=== PATIENT | male | born 1945 | race Caucasian/White ===

== ENCOUNTER 2020-10-19 12:56 | Inpatient (IN) | payer MEDICARE, MEDICAID ==
[~2020-10-19] VITALS: Ht 177.8 cm; Wt 67.7 kg
[2020-10-19 13:30] LABS: HEMATOCRIT. 28.6 % (42.0-52.0); HEMOGLOBIN. 9.7 g/dL (14.0-18.0); MEAN CORPUSCULAR VOLUME 88.1 fL (80.0-94.0); MEAN PLATELET VOLUME 9.7 fl (7.4-10.4); PLATELET 102 x1000/uL (130-400); RED BLOOD CELL COUNT 3.25 mill/uL (4.7-6.1); RED CELL DISTRIBUTION WIDTH 13.7 % (11.6-14.6)
[2020-10-19] MEDS ORDERED: FUROSEMIDE 20MG/2ML VIAL IVP ONE (13:30)
[2020-10-19] MEDS ORDERED: DILTIAZEM HCL 5MG/ML 5ML VIAL IV ONE (13:30)
[2020-10-19 13:38] LABS: CHLORIDE 110 mEq/L (98-107)
[2020-10-19 14:00] LABS: PLATELET ESTIMATE DECREASED
[2020-10-19 22:08] VITALS: BP 110/77
[2020-10-19] MEDS ORDERED: ATEN-42 PO (23:15)
[2020-10-19] MEDS ORDERED: PROM5SYR PO (23:15)
[2020-10-19] MEDS ORDERED: OMEP40CA12 PO (23:15)
[2020-10-19] MEDS ORDERED: RAMI10CA68 PO (23:15)
[2020-10-19] MEDS ORDERED: *PATIENT'S OWN MEDICATION STORAGE XX SCH (23:30)
[2020-10-20] VITALS (7 sets, daily range): BP systolic 110–140; BP diastolic 70–93
[2020-10-20] MEDS ORDERED: DEXTROSE 50% WATER 50ML SYRINGE IV PRN (00:30)
[2020-10-20] MEDS ORDERED: CEFTRIAXONE 1 G PREMIX 50 ML IV SCH (01:00)
[2020-10-20] MEDS: POTASSIUM CHLORIDE 20MEQ TABLET SR PO SCH ×2 (01:29→09:06)
[2020-10-20] MEDS: METOPROLOL TARTRATE 50MG TABLET PO SCH ×3 (01:29→21:18)
[2020-10-20] MEDS: HYDROCODONE/ACETAMINOPHEN 5/325MG TABLET PO PRN (01:29)
[2020-10-20 01:40] LABS: CREATINE KINASE 53 IU/L (39-308)
[2020-10-20 01:41] LABS: CREATINE KINASE MB FRACTION 2.3 ng/mL (0.5-3.6)
[2020-10-20] MEDS ORDERED: VANCOMYCIN 1 G PREMIX 200 ML IV SCH (02:30)
[2020-10-20] MEDS ORDERED: CEFTRIAXONE 1,000 MG in DEXTROSE 5% WATER 50 ML IV SCH (02:47)
[2020-10-20] MEDS: BLOOD SUGAR DIAGNOSTIC STRIP TEST SCH ×4 (07:00→21:17)
[2020-10-20] MEDS: INSULIN LISPRO 100 UNITS/ML SUBCUT SCH ×4 (07:01→21:00)
[2020-10-20 07:30] LABS: CREATINE KINASE 51 IU/L (39-308)
[2020-10-20] MEDS: PANTOPRAZOLE SODIUM 40 MG/VIAL IV SCH (09:05)
[2020-10-20] MEDS: FUROSEMIDE 40MG/4ML VIAL IVP SCH (09:05)
[2020-10-20] MEDS: VANCOMYCIN 1 G PREMIX 200 ML IV SCH ×2 (12:19→21:18)
[2020-10-20] MEDS ORDERED: IPRATROPIUM/ALBUTEROL 0.5-3(2.5)MG/3ML NEB HHN PRN (17:00)
[2020-10-20] MEDS ORDERED: ONDANSETRON HCL 4MG/2ML INJ IV PRN (17:00)
[2020-10-20] MEDS ORDERED: BISACODYL 10MG SUPP PR PRN (17:00)
[2020-10-20] MEDS ORDERED: ACETAMINOPHEN 650MG SUPP PR PRN (17:00)
[2020-10-20] MEDS: DILTIAZEM HCL 30MG TABLET PO SCH (18:03)
[2020-10-20] MEDS: ENOXAPARIN 80MG/0.8ML SYR SUBCUT SCH (18:03)
[2020-10-20 19:47] LABS: BASOPHILS % 0.4 % (0.0-2.0); EOSINOPHILS % 4.4 % (0.0-5.0); HEMATOCRIT. 31.1 % (42.0-52.0); HEMOGLOBIN. 10.5 g/dL (14.0-18.0); LYMPHOCYTES % 7.7 % (20.0-50.0); MEAN CORPUSCULAR HEMOGLOBIN 30.6 pg (28.0-32.0); MEAN CORPUSCULAR VOLUME 90.4 fL (80.0-94.0); MEAN PLATELET VOLUME 10.6 fl (7.4-10.4); MONOCYTES % 5.9 % (2.0-8.0); NEUTROPHILS % 81.6 % (40.0-76.0); PLATELET 132 x1000/uL (130-400); RED BLOOD CELL COUNT 3.45 mill/uL (4.7-6.1); RED CELL DISTRIBUTION WIDTH 13.5 % (11.6-14.6)
[2020-10-20 19:55] LABS: INR 1.2; PROTHROMBIN TIME 12.9 sec (9.6-11.0)
[2020-10-20 20:07] LABS: CHLORIDE 99 mEq/L (98-107)
[2020-10-20 20:12] LABS: LDL CHOLESTEROL 73 mg/dL (5-100)
[2020-10-20 20:13] LABS: HDL CHOLESTEROL 34 mg/dL (40-59)
[2020-10-20 20:17] LABS: CREATINE KINASE 58 IU/L (39-308)
[2020-10-20 20:21] LABS: CREATINE KINASE MB FRACTION 2.2 ng/mL (0.5-3.6)
[2020-10-20] MEDS: CEFTRIAXONE 1,000 MG in DEXTROSE 5% WATER 50 ML IV SCH (21:18)
[2020-10-21] VITALS: BP 124/56
[2020-10-21] MEDS: HYDROCODONE/ACETAMINOPHEN 5/325MG TABLET PO PRN ×3 (00:51→14:55)
[2020-10-21 04:00] VITALS: BP 120/71
[2020-10-21] MEDS: ENOXAPARIN 80MG/0.8ML SYR SUBCUT SCH ×2 (05:46→18:22)
[2020-10-21] MEDS: DILTIAZEM HCL 30MG TABLET PO SCH ×4 (05:46→23:19)
[2020-10-21] MEDS: BLOOD SUGAR DIAGNOSTIC STRIP TEST SCH ×4 (06:45→20:33)
[2020-10-21 07:05] LABS: INR 1.2; PROTHROMBIN TIME 12.5 sec (9.6-11.0)
[2020-10-21 07:06] LABS: CHLORIDE 98 mEq/L (98-107)
[2020-10-21 07:08] LABS: BASOPHILS % 0.5 % (0.0-2.0); EOSINOPHILS % 6.5 % (0.0-5.0); HEMATOCRIT. 29.5 % (42.0-52.0); LYMPHOCYTES % 8.9 % (20.0-50.0); MEAN CORPUSCULAR HEMOGLOBIN 30.2 pg (28.0-32.0); MEAN CORPUSCULAR VOLUME 88.9 fL (80.0-94.0); MEAN PLATELET VOLUME 10.5 fl (7.4-10.4); MONOCYTES % 7.2 % (2.0-8.0); NEUTROPHILS % 76.9 % (40.0-76.0); PLATELET 106 x1000/uL (130-400); RED BLOOD CELL COUNT 3.32 mill/uL (4.7-6.1); RED CELL DISTRIBUTION WIDTH 13.6 % (11.6-14.6)
[2020-10-21] MEDS: INSULIN LISPRO 100 UNITS/ML SUBCUT SCH ×4 (07:15→21:00)
[2020-10-21 08:00] VITALS: BP 114/74
[2020-10-21] MEDS: FUROSEMIDE 40MG/4ML VIAL IVP SCH (08:46)
[2020-10-21] MEDS: PANTOPRAZOLE SODIUM 40 MG/VIAL IV SCH (08:46)
[2020-10-21] MEDS: VANCOMYCIN 1 G PREMIX 200 ML IV SCH (08:46)
[2020-10-21] MEDS: METOPROLOL TARTRATE 50MG TABLET PO SCH ×2 (08:47→20:33)
[2020-10-21] MEDS: POTASSIUM CHLORIDE 20MEQ TABLET SR PO SCH (08:47)
[2020-10-21 12:00] VITALS: BP 117/78
[2020-10-21 16:00] VITALS: BP 121/76
[2020-10-21] MEDS ORDERED: IOHEXOL-350 100 ML BOTTLE ONE (16:53)
[2020-10-21 20:00] VITALS: BP 115/76
[2020-10-21] MEDS: CEFTRIAXONE 1,000 MG in DEXTROSE 5% WATER 50 ML IV SCH (20:33)
[2020-10-21] MEDS: VANCOMYCIN 750 MG PREMIX 150 ML IV SCH (22:39)
[2020-10-21] MEDS: ACETAMINOPHEN 325MG TABLET PO PRN (23:20)
[2020-10-22] VITALS (7 sets, daily range): BP systolic 105–118; BP diastolic 66–79
[2020-10-22] MEDS: HYDROCODONE/ACETAMINOPHEN 5/325MG TABLET PO PRN ×3 (01:52→16:46)
[2020-10-22] MEDS: DILTIAZEM HCL 30MG TABLET PO SCH ×4 (05:08→23:44)
[2020-10-22] MEDS: ENOXAPARIN 80MG/0.8ML SYR SUBCUT SCH ×2 (05:35→18:17)
[2020-10-22] MEDS: BLOOD SUGAR DIAGNOSTIC STRIP TEST SCH ×4 (06:36→21:36)
[2020-10-22] MEDS: INSULIN LISPRO 100 UNITS/ML SUBCUT SCH ×4 (06:37→21:36)
[2020-10-22 08:04] LABS: BASOPHILS % 0.5 % (0.0-2.0); EOSINOPHILS % 5.8 % (0.0-5.0); HEMATOCRIT. 29.4 % (42.0-52.0); HEMOGLOBIN. 9.9 g/dL (14.0-18.0); MEAN CORPUSCULAR HEMOGLOBIN 29.7 pg (28.0-32.0); MEAN CORPUSCULAR VOLUME 88.1 fL (80.0-94.0); MEAN PLATELET VOLUME 10.7 fl (7.4-10.4); MONOCYTES % 6.8 % (2.0-8.0); NEUTROPHILS % 78.9 % (40.0-76.0); PLATELET 121 x1000/uL (130-400); RED BLOOD CELL COUNT 3.34 mill/uL (4.7-6.1); RED CELL DISTRIBUTION WIDTH 13.9 % (11.6-14.6)
[2020-10-22 08:06] LABS: CHLORIDE 96 mEq/L (98-107)
[2020-10-22] MEDS: VANCOMYCIN 750 MG PREMIX 150 ML IV SCH ×2 (09:09→23:32)
[2020-10-22] MEDS: FUROSEMIDE 40MG/4ML VIAL IVP SCH (09:09)
[2020-10-22] MEDS: POTASSIUM CHLORIDE 20MEQ TABLET SR PO SCH (09:09)
[2020-10-22] MEDS: PANTOPRAZOLE SODIUM 40 MG/VIAL IV SCH (09:09)
[2020-10-22] MEDS: METOPROLOL TARTRATE 50MG TABLET PO SCH ×2 (09:10→21:35)
[2020-10-22] MEDS: CEFTRIAXONE 1,000 MG in DEXTROSE 5% WATER 50 ML IV SCH (21:34)
[2020-10-23] MEDS: HYDROCODONE/ACETAMINOPHEN 5/325MG TABLET PO PRN ×4 (01:14→13:03)
[2020-10-23 04:00] VITALS: BP 120/75
[2020-10-23] MEDS: BLOOD SUGAR DIAGNOSTIC STRIP TEST SCH ×4 (06:01→21:05)
[2020-10-23] MEDS: DILTIAZEM HCL 30MG TABLET PO SCH ×3 (06:03→18:00)
[2020-10-23] MEDS: ENOXAPARIN 80MG/0.8ML SYR SUBCUT SCH ×2 (06:03→18:01)
[2020-10-23] MEDS: INSULIN LISPRO 100 UNITS/ML SUBCUT SCH ×4 (06:33→21:00)
[2020-10-23 06:46] LABS: CHLORIDE 94 mEq/L (98-107)
[2020-10-23 08:00] VITALS: BP 98/62
[2020-10-23] MEDS: METOPROLOL TARTRATE 50MG TABLET PO SCH ×2 (09:00→21:18)
[2020-10-23] MEDS: FUROSEMIDE 40MG/4ML VIAL IVP SCH (10:08)
[2020-10-23] MEDS: POTASSIUM CHLORIDE 20MEQ TABLET SR PO SCH (10:09)
[2020-10-23] MEDS: VANCOMYCIN 750 MG PREMIX 150 ML IV SCH (10:09)
[2020-10-23] MEDS: PANTOPRAZOLE SODIUM 40 MG/VIAL IV SCH (10:09)
[2020-10-23] MEDS: DIPHENHYDRAMINE 50MG/ML VIAL IV PRN ×2 (10:09→21:22)
[2020-10-23 12:00] VITALS: BP 115/66
[2020-10-23] MEDS: QUETIAPINE FUMARATE 25MG TABLET PO SCH (13:17)
[2020-10-23 16:00] VITALS: BP 129/68
[2020-10-23 20:36] VITALS: BP 146/87
[2020-10-23] MEDS: CEFTRIAXONE 1,000 MG in DEXTROSE 5% WATER 50 ML IV SCH (21:18)
[2020-10-24 00:03] VITALS: BP 136/93
[2020-10-24] MEDS: DILTIAZEM HCL 30MG TABLET PO SCH ×4 (00:23→13:52)
[2020-10-24] MEDS: HYDROCODONE/ACETAMINOPHEN 5/325MG TABLET PO PRN ×3 (00:25→23:07)
[2020-10-24 04:00] VITALS: BP 108/56
[2020-10-24] MEDS: ENOXAPARIN 80MG/0.8ML SYR SUBCUT SCH ×2 (06:11→17:43)
[2020-10-24] MEDS: PANTOPRAZOLE 40MG DR TABLET PO SCH (06:13)
[2020-10-24] MEDS: BLOOD SUGAR DIAGNOSTIC STRIP TEST SCH ×4 (06:30→21:00)
[2020-10-24] MEDS: INSULIN LISPRO 100 UNITS/ML SUBCUT SCH ×4 (06:31→21:00)
[2020-10-24 07:35] LABS: BASOPHILS % 0.5 % (0.0-2.0); CHLORIDE 99 mEq/L (98-107); EOSINOPHILS % 3.8 % (0.0-5.0); HEMATOCRIT. 30.6 % (42.0-52.0); HEMOGLOBIN. 10.2 g/dL (14.0-18.0); LYMPHOCYTES % 7.6 % (20.0-50.0); MEAN CORPUSCULAR HEMOGLOBIN 29.1 pg (28.0-32.0); MEAN CORPUSCULAR VOLUME 87.2 fL (80.0-94.0); MEAN PLATELET VOLUME 10.7 fl (7.4-10.4); MONOCYTES % 7.1 % (2.0-8.0); PLATELET 138 x1000/uL (130-400); RED BLOOD CELL COUNT 3.51 mill/uL (4.7-6.1); RED CELL DISTRIBUTION WIDTH 13.4 % (11.6-14.6)
[2020-10-24 08:00] VITALS: BP 108/58
[2020-10-24] MEDS: METOPROLOL TARTRATE 50MG TABLET PO SCH (08:48)
[2020-10-24] MEDS: VANCOMYCIN 1 G PREMIX 200 ML IV SCH (08:56)
[2020-10-24] MEDS: POTASSIUM CHLORIDE 20MEQ TABLET SR PO SCH (08:56)
[2020-10-24] MEDS: QUETIAPINE FUMARATE 25MG TABLET PO SCH (08:56)
[2020-10-24 12:00] VITALS: BP 106/67
[2020-10-24 13:07] LABS: BG BASE EXCESS 2.9 mmol/L (-2.0-2.0); BG CARBOXYHEMOGLOBIN 0.2 % (0.5-1.5); BG DEOXYHEMOGLOBIN 2.2 % (0.0-5.0); BG FRACTION INSPIRED OXYGEN 21; BG HCO3 ACT 25.5 mmol/L (22.0-26.0); BG METHEMOGLOBIN 0.3 % (0.0-1.5); BG OXYGEN SATURATION 97.8 % (92.0-98.5); BG OXYHEMOGLOBIN 97.3 % (94.0-97.0); BG PCO2 32.5 mmHg (35.0-45.0); BG PH 7.513 (7.350-7.450); BG PO2 97.4 mmHg (75.0-100.0); BG SAMPLE SITE RIGHT RADIAL; BG TOTAL HEMOGLOBIN 11.5 g/dL (12.0-18.0); BG VENT MODE ROOM AIR
[2020-10-24] MEDS: DIPHENHYDRAMINE 50MG/ML VIAL IV PRN (13:56)
[2020-10-24] MEDS: LORAZEPAM 2MG/ML CPJ IV PRN (15:56)
[2020-10-24 16:00] VITALS: BP 128/52
[2020-10-24] MEDS: DILTIAZEM HCL 90MG TABLET PO SCH (17:43)
[2020-10-24 20:00] VITALS: BP 114/54
[2020-10-24] MEDS: CEFTRIAXONE 1,000 MG in DEXTROSE 5% WATER 50 ML IV SCH (20:22)
[2020-10-24] MEDS: METOPROLOL TARTRATE 25MG TABLET PO SCH (20:23)
[2020-10-25] VITALS: BP 117/70
[2020-10-25] MEDS: DILTIAZEM HCL 90MG TABLET PO SCH ×4 (01:15→18:23)
[2020-10-25] MEDS: VANCOMYCIN 1 G PREMIX 200 ML IV SCH ×2 (03:21→21:59)
[2020-10-25 04:00] VITALS: BP 120/99
[2020-10-25] MEDS: LORAZEPAM 2MG/ML CPJ IV PRN ×2 (04:30→12:40)
[2020-10-25] MEDS: DIPHENHYDRAMINE 50MG/ML VIAL IV PRN (05:30)
[2020-10-25] MEDS: ENOXAPARIN 80MG/0.8ML SYR SUBCUT SCH ×2 (06:33→18:23)
[2020-10-25] MEDS: BLOOD SUGAR DIAGNOSTIC STRIP TEST SCH ×4 (06:33→21:05)
[2020-10-25] MEDS: PANTOPRAZOLE 40MG DR TABLET PO SCH (06:33)
[2020-10-25] MEDS: INSULIN LISPRO 100 UNITS/ML SUBCUT SCH ×4 (06:43→21:00)
[2020-10-25 08:00] VITALS: BP 127/54
[2020-10-25] MEDS: POTASSIUM CHLORIDE 20MEQ TABLET SR PO SCH (08:52)
[2020-10-25] MEDS: METOPROLOL TARTRATE 25MG TABLET PO SCH ×3 (08:53→21:00)
[2020-10-25] MEDS: QUETIAPINE FUMARATE 25MG TABLET PO SCH ×3 (08:53→21:00)
[2020-10-25 09:36] LABS: HEMATOCRIT. 30.1 % (42.0-52.0); HEMOGLOBIN. 10.3 g/dL (14.0-18.0); MEAN CORPUSCULAR HEMOGLOBIN 30.1 pg (28.0-32.0); MEAN CORPUSCULAR VOLUME 88.3 fL (80.0-94.0); MEAN PLATELET VOLUME 10.5 fl (7.4-10.4); PLATELET 126 x1000/uL (130-400); RED BLOOD CELL COUNT 3.41 mill/uL (4.7-6.1); RED CELL DISTRIBUTION WIDTH 13.5 % (11.6-14.6)
[2020-10-25 09:42] LABS: CHLORIDE 99 mEq/L (98-107)
[2020-10-25 12:00] VITALS: BP 124/58
[2020-10-25] MEDS: LORAZEPAM 2MG/ML CPJ IV NR ×2 (13:15→16:24)
[2020-10-25 13:39] LABS: ATYPICAL LYMPHOCYTES 1; PLATELET ESTIMATE NORMAL
[2020-10-25] MEDS ORDERED: HALOPERIDOL LACTATE 5MG/ML VIAL IM PRN (13:45)
[2020-10-25] MEDS ORDERED: THIAMINE HCL 100 MG in SODIUM CHLORIDE 0.9% 49 ML IV NR (15:00)
[2020-10-25 16:00] VITALS: BP 152/65
[2020-10-25 16:48] LABS: *AMPHETAMINES SCREEN URINE NEGATIVE (NEGATIVE)
[2020-10-25 16:49] LABS: *BARBITURATES SCREEN URINE NEGATIVE (NEGATIVE); *BENZODIAZEPINES SCREEN URINE NEGATIVE (NEGATIVE); *COCAINE SCREEN URINE NEGATIVE (NEGATIVE); METHADONE URINE SCREEN NEGATIVE (NEGATIVE); OPIATES URINE SCREEN PRESUMTIVE POSITIVE (NEGATIVE)
[2020-10-25 16:50] LABS: CANNABINOID URINE SCREEN NEGATIVE (NEGATIVE); PHENCYCLIDINE URINE SCREEN NEGATIVE (NEGATIVE)
[2020-10-25] MEDS ORDERED: LORAZEPAM 2MG/ML CPJ IV NR (17:00)
[2020-10-25 18:48] LABS: CLARITY URINE CLEAR (CLEAR); COLOR URINE YELLOW (YELLOW); KETONES URINE NEGATIVE (NEGATIVE); LEUKOCYTE ESTERASE URINE NEGATIVE (NEGATIVE); NITRITE URINE NEGATIVE (NEGATIVE); OCCULT BLOOD URINE 2+ (NEGATIVE); PH URINE 8.5 (4.5-8.0); PROTEIN URINE 1+ (NEGATIVE); SPECIFIC GRAVITY URINE 1.013 (1.005-1.030)
[2020-10-25 20:00] VITALS: BP 135/66
[2020-10-25] MEDS: CEFTRIAXONE 1,000 MG in DEXTROSE 5% WATER 50 ML IV SCH (20:30)
[2020-10-25] MEDS: TAMSULOSIN HCL 0.4MG SR CAPSULE PO SCH ×2 (20:30→21:00)
[2020-10-25] MEDS: FINASTERIDE 5MG TABLET PO SCH ×2 (20:32→21:00)
[2020-10-26] VITALS: BP 125/65
[2020-10-26] MEDS: LORAZEPAM 2MG/ML CPJ IV PRN ×2 (00:56→17:07)
[2020-10-26 04:00] VITALS: BP 130/85
[2020-10-26] MEDS: DILTIAZEM HCL 90MG TABLET PO SCH ×4 (06:00→17:38)
[2020-10-26 06:09] LABS: CHLORIDE 98 mEq/L (98-107)
[2020-10-26] MEDS: ENOXAPARIN 80MG/0.8ML SYR SUBCUT SCH ×2 (06:20→17:38)
[2020-10-26] MEDS: BLOOD SUGAR DIAGNOSTIC STRIP TEST SCH ×4 (06:20→21:00)
[2020-10-26 06:21] LABS: HEMATOCRIT. 31.7 % (42.0-52.0); HEMOGLOBIN. 10.6 g/dL (14.0-18.0); MEAN CORPUSCULAR HEMOGLOBIN 29.8 pg (28.0-32.0); MEAN CORPUSCULAR VOLUME 89.4 fL (80.0-94.0); MEAN PLATELET VOLUME 11.4 fl (7.4-10.4); PLATELET 132 x1000/uL (130-400); RED BLOOD CELL COUNT 3.55 mill/uL (4.7-6.1); RED CELL DISTRIBUTION WIDTH 13.6 % (11.6-14.6)
[2020-10-26] MEDS: INSULIN LISPRO 100 UNITS/ML SUBCUT SCH ×4 (06:21→21:00)
[2020-10-26 08:00] VITALS: BP 113/66
[2020-10-26] MEDS: POTASSIUM CHLORIDE 20MEQ TABLET SR PO SCH (09:00)
[2020-10-26] MEDS: FAMOTIDINE 20MG TABLET PO SCH (09:00)
[2020-10-26] MEDS: HYDROCODONE/ACETAMINOPHEN 5/325MG TABLET PO PRN ×2 (09:23→16:09)
[2020-10-26] MEDS: QUETIAPINE FUMARATE 25MG TABLET PO SCH (09:23)
[2020-10-26] MEDS: METOPROLOL TARTRATE 25MG TABLET PO SCH ×2 (09:23→21:00)
[2020-10-26] MEDS ORDERED: DILTIAZEM HCL 60MG TABLET PO ONE (10:15)
[2020-10-26] MEDS ORDERED: DILTIAZEM HCL 60MG TABLET PO NR (10:15)
[2020-10-26] MEDS: VANCOMYCIN 1 G PREMIX 200 ML IV SCH (15:54)
[2020-10-26 16:00] VITALS: BP 106/58
[2020-10-26 16:56] LABS: PLATELET ESTIMATE NORMAL
[2020-10-26 20:00] VITALS: BP 105/50
[2020-10-26] MEDS: FINASTERIDE 5MG TABLET PO SCH (20:43)
[2020-10-26] MEDS: RISPERIDONE 0.25MG TABLET PO SCH (20:43)
[2020-10-26] MEDS: CEFTRIAXONE 1,000 MG in DEXTROSE 5% WATER 50 ML IV SCH (20:44)
[2020-10-26] MEDS: TAMSULOSIN HCL 0.4MG SR CAPSULE PO SCH (20:44)
[2020-10-27] VITALS (56 sets, daily range): BP systolic 50–133; BP diastolic 21–95
[2020-10-27] MEDS: ACETAMINOPHEN 325MG TABLET PO PRN (01:12)
[2020-10-27] MEDS ORDERED: DIGOXIN 500MCG/2ML AMP IV NR (05:00)
[2020-10-27] MEDS: PHENYLEPHRINE 100 MG in DEXT 5% WATER 240 ML IV PRN ×2 (05:26→11:23)
[2020-10-27] MEDS: DILTIAZEM HCL 90MG TABLET PO SCH ×3 (05:42→11:13)
[2020-10-27] MEDS: INSULIN LISPRO 100 UNITS/ML SUBCUT SCH ×2 (06:12→13:20)
[2020-10-27] MEDS: BLOOD SUGAR DIAGNOSTIC STRIP TEST SCH ×2 (06:12→13:16)
[2020-10-27 07:10] LABS: HEMOGLOBIN. 8.1 g/dL (14.0-18.0); MEAN CORPUSCULAR HEMOGLOBIN 29.6 pg (28.0-32.0); MEAN CORPUSCULAR VOLUME 87.9 fL (80.0-94.0); MEAN PLATELET VOLUME 11.8 fl (7.4-10.4); PLATELET 175 x1000/uL (130-400); RED BLOOD CELL COUNT 2.73 mill/uL (4.7-6.1); RED CELL DISTRIBUTION WIDTH 13.3 % (11.6-14.6)
[2020-10-27] MEDS ORDERED: NOREPINEPHRINE 8MG/250ML PMX 250 ML IV ONE (08:00)
[2020-10-27] MEDS ORDERED: NOREPINEPHRINE 32 MG in DEXT 5% WATER 218 ML IV PRN (08:00)
[2020-10-27] MEDS ORDERED: SODIUM CHLORIDE 0.9% 1,000 ML IV SCH (08:45)
[2020-10-27] MEDS: METOPROLOL TARTRATE 25MG TABLET PO SCH (09:00)
[2020-10-27] MEDS: VANCOMYCIN 1 G PREMIX 200 ML IV SCH (09:11)
[2020-10-27] MEDS: POTASSIUM CHLORIDE 20MEQ TABLET SR PO SCH (09:14)
[2020-10-27] MEDS: RISPERIDONE 0.25MG TABLET PO SCH (09:14)
[2020-10-27] MEDS: MIDODRINE HCL 5MG TABLET PO SCH ×2 (09:14→13:00)
[2020-10-27] MEDS: FAMOTIDINE 20MG TABLET PO SCH (09:14)
[2020-10-27] MEDS ORDERED: SODIUM CHLORIDE 0.9% 500 ML IV ONE (09:30)
[2020-10-27 09:40] LABS: PLATELET ESTIMATE NORMAL
[2020-10-27] MEDS ORDERED: DILTIAZEM HCL 125 MG in DEXT 5% WATER 100 ML IV PRN (10:30)
[2020-10-27] MEDS ORDERED: VASOPRESSIN 20 UNIT in SODIUM CHLORIDE 0.9% 99 ML IV PRN (10:30)
[2020-10-27 10:52] LABS: BG BASE EXCESS -14.9 mmol/L (-2.0-2.0); BG CARBOXYHEMOGLOBIN 0.8 % (0.5-1.5); BG DEOXYHEMOGLOBIN 1.6 % (0.0-5.0); BG FRACTION INSPIRED OXYGEN 21; BG HCO3 ACT 8.9 mmol/L (22.0-26.0); BG METHEMOGLOBIN 0.2 % (0.0-1.5); BG OXYGEN SATURATION 98.4 % (92.0-98.5); BG OXYHEMOGLOBIN 97.4 % (94.0-97.0); BG PH 7.361 (7.350-7.450); BG PO2 128.9 mmHg (75.0-100.0); BG SAMPLE SITE RIGHT BRACHIAL; BG TOTAL HEMOGLOBIN 7.6 g/dL (12.0-18.0); BG VENT MODE ROOM AIR
[2020-10-27] MEDS ORDERED: MAGNESIUM 2 G PREMIX 50 ML IV SCH (11:00)
[2020-10-27 11:09] LABS: T4 FREE 1.54 ng/dL (0.76-1.46)
[2020-10-27] MEDS ORDERED: LIDOCAINE HCL 1% 20ML VIAL (Pyxis) INJ ONE (12:56)
[2020-10-27] MEDS ORDERED: HYDROCORTISONE SOD SUCCINATE 100 MG/2 ML VIAL IV SCH (14:00)
[2020-10-27] MEDS ORDERED: SODIUM BICARBONATE 8.4% 1 MEQ/ML 50ML SYR IV ONE (14:03)
[2020-10-27] MEDS ORDERED: SODIUM BICARBONATE 8.4% 1 MEQ/ML 50ML SYR IV NR (14:03)
[2020-10-27] MEDS ORDERED: MORPHINE SULFATE 2 MG/ML CPJ (NOT FOR IM USE) IV PRN (14:15)
[2020-10-27] MEDS ORDERED: MORPHINE SULFATE 2 MG/ML CPJ (NOT FOR IM USE) IV NR (14:15)
== END 2020-10-27 16:28 | DRG 344 ==
LOC: ER 12:56 → 5WST 18:44 → ENRESERV 21:05 → MICUNO 10-27 05:00 → CVICU 10-27 10:41
PROVIDERS: ADMIT Internal Medicine; ATTEND Internal Medicine
PROC: 4A10X4Z Monitoring of Central Nervous Electrical Activity, External Approach (ICD-10-PCS; 2020-10-26)
PROC: 02HV33Z Insertion of Infusion Device into Superior Vena Cava, Percutaneous Approach (ICD-10-PCS; principal; 2020-10-27)
PROC: B548ZZA Ultrasonography of Superior Vena Cava, Guidance (ICD-10-PCS; 2020-10-27)
DX: E11.69 Type 2 diabetes mellitus with other specified complication (principal); M86.8X7 Other osteomyelitis, ankle and foot; G93.41 Metabolic encephalopathy; I50.33 Acute on chronic diastolic (congestive) heart failure; E11.52 Type 2 diabetes mellitus with diabetic peripheral angiopathy with gangrene; I70.261 Atherosclerosis of native arteries of extremities with gangrene, right leg; D68.59 Other primary thrombophilia; E11.40 Type 2 diabetes mellitus with diabetic neuropathy, unspecified; I95.9 Hypotension, unspecified; E11.621 Type 2 diabetes mellitus with foot ulcer; E87.1 Hypo-osmolality and hyponatremia; L97.419 Non-pressure chronic ulcer of right heel and midfoot with unspecified severity; L97.519 Non-pressure chronic ulcer of other part of right foot with unspecified severity; I48.20 Chronic atrial fibrillation, unspecified; D64.9 Anemia, unspecified; I89.0 Lymphedema, not elsewhere classified; F03.90 Unspecified dementia, unspecified severity, without behavioral disturbance, psychotic disturbance, mood disturbance, and anxiety; F10.10 Alcohol abuse, uncomplicated; I11.0 Hypertensive heart disease with heart failure; I34.0 Nonrheumatic mitral (valve) insufficiency; K59.00 Constipation, unspecified; K74.60 Unspecified cirrhosis of liver; Z66 Do not resuscitate; Z20.822 Contact with and (suspected) exposure to COVID-19; Z78.1 Physical restraint status; Z79.01 Long term (current) use of anticoagulants; Z87.891 Personal history of nicotine dependence; Z91.19 Patient's noncompliance with other medical treatment and regimen; Z79.4 Long term (current) use of insulin; Z79.899 Other long term (current) drug therapy; R06.03 Acute respiratory distress; N32.0 Bladder-neck obstruction
CPT/HCPCS: 36415; 36600; 70551; 71045; 73630; 73650; 75635; 76937; 80048; 80053; 80061; 80076; 80202; 80305; 81003; 82140; 82375; 82550; 82553; 82805; 82962; 83036; 83735; 83880; 84145; 84439; 84443; 84481; 84484; 85025; 85651; 86141; 87426; 93005; 93306; 93923; 93970; 95816; 97162; 99291; C1725; C1769; C1893; C9113; J0696; J1160; J1200; J1650; J1720; J1815; J1940; J2060; J2270; J2370; J3370; J3411; J3475; J3490; J7030; J7040; J7060; Q9967; A4315